=== PATIENT | female | born 1950 | race Caucasian/White ===

== ENCOUNTER 2016-07-28 07:32 | Emergency (ER) | payer MEDICARE ==
[2016-07-28] MEDS ORDERED: DILTIAZEM HCL 5 MG/ML 5ML VIAL IV ONE ×2 (07:56→08:27)
[2016-07-28 08:02] LABS: BASO % 0.6 % (0.2-1.0); EOS # 0.5 (0.0-0.5); EOS % 8.6 % (0.9-2.9); HEMATOCRIT 48.3 % (37.0-47.0); HEMOGLOBIN 15.7 gm/l (12.0-16.0); IMM NEUT% 0.2 % (0-1); LYMPH # 3.1 (1.0-4.8); MEAN CELL VOLUME 93.4 fl (81.0-99.0); MEAN CORPUSCULAR HEMOGLOBIN 30.4 pg (27.0-31.0); MEAN CORPUSCULAR HGB CONC 32.5 g/dl (33.0-37.0); MEAN PLATELET VOLUME 9.9 fl (7.4-10.4); MONO # 0.5 (0.0-0.8); MONO % 8.1 % (4-12); NEUT % 32.5 % (43-75); PLATELET COUNT 199 K/mm3 (130-400)
[2016-07-28 08:20] LABS: ALB/GLOB RATIO 1.2 (>1.0); ALBUMIN 4.4 gm/dL (3.5-5.7); MAGNESIUM 2.1 mg/dL (1.9-2.7)
[2016-07-28 08:26] LABS: TROPONIN I < 0.01 ng/ml (0.0-0.06)
[2016-07-28 08:35] LABS: THYROID STIMULATING HORMONE 1.05 uIU/ml (0.34-5.60)
--- NOTE | 2016-07-28 09:13 | RAD ---
07/28/2016 9:06 AM CHEST-AP BEDSIDE History: Arrhythmia Comparison: 09/13/2014 Findings: Single AP view of the chest is obtained. The lungs are clear with out effusion or pneumothorax. The cardiomediastinal silhouette is unremarkable.. The osseous structures are intact.. Pacemaker pads overlie the chest. EKG leads are also present. IMPRESSION: No acute intrathoracic process.
== END 2016-07-28 09:03 | disposition home or self-care (01) ==
LOC: ED 07:32
DX: I48.0 Paroxysmal atrial fibrillation (principal)